=== PATIENT | male | born 1965 | race Caucasian/White ===

== ENCOUNTER 2022-08-22 00:27 | Day surgery (SDC) | payer BC, SELFPAY ==
[2022-08-12 09:47] VITALS: BMI 25.8
[2022-08-22 06:15] VITALS: BP 124/75; PULSE 74; RESP 18; TEMP 36.1; O2SAT 95
[2022-08-22] MEDS: LACTATED RINGERS 1,000 ML 150 ML IV CONT (06:28)
[2022-08-22 06:29] LABS: Glucose Point of Care 98 mg/dl (65-105)
--- NOTE | 2022-08-22 07:23 | WPDANESEPPF ---
Anes - Initial Pre Proc Eval Procedure: Operation Date: 08/22/22 07:30 Proposed Procedures p Screening Colonoscopy - Rony Khan MD Date/Time: 08/22/22 07:23 Surgeon: Rony Khan MD Pre Op Diagnosis: neoplasm screenin Patient Data Age: 57 Gender: M Height: 1.8 m Weight: 85.9 kg Last Vital Signs Temp 97 F L 08/22/22 06:15 Pulse 74 08/22/22 06:15 Resp 18 08/22/22 06:15 BP 124/75 08/22/22 06:15 Pulse Ox 95 08/22/22 06:15 O2 Del Method Room Air 08/22/22 06:15 Allergies Allergy/AdvReac Type Severity Reaction Status Date / Time No Known Allergies Allergy Verified 08/22/22 06:14 Home Medications Medication Instructions Recorded Confirmed Type glipizide 5 mg tablet 5 mg PO DAILY 09/05/21 08/12/22 History cetirizine 10 mg tablet (Zyrtec) 10 mg PO DAILY PRN Allergy Symptoms 12/11/21 08/12/22 History Jardiance 25 mg tablet See Rx Instructions .Route 03/31/22 08/12/22 Rx (empagliflozin) .COMPLEX #90 tabs Trulicity 3 mg/0.5 mL subcutaneous See Rx Instructions .Route 03/31/22 08/12/22 Rx pen injector (dulaglutide) .COMPLEX #6 mL simvastatin 40 mg tablet See Rx Instructions .Route 03/31/22 08/12/22 Rx .COMPLEX #90 tabs metformin 500 mg tablet 1,000 mg PO BID #360 tabs 04/22/22 08/12/22 Rx sodium,potassium,mag sulfates 17.5 See Rx Instructions PO .COMPLEX 06/30/22 08/12/22 Rx gram-3.13 gram-1.6 gram oral soln #354 mL (Suprep Bowel Prep Kit) Laboratory Tests 08/22/22 06:25 POC Capillary Glucose 98 mg/dl mg/dl (65-105) Patient hx anesthesia problems: none Family hx anesthesia problems: none Results Review: All pre-operative results and documents have been reviewed as part of the pre-operative evaluation. [facility] Past Medical History Medical History (Updated 06/20/22 @ 08:26 by Bailey Johnson NP) Diabetes type 2, controlled Elevated PSA Hyperlipidemia Surgical History Surgical History (Updated 06/20/22 @ 07:44 by Tiffani Gibson CMA) History of prostatectomy (~02/2022) Family History Family History Father Diabetes mellitus Heart disease Cerebrovascular accident Cancer colon, lung Mother Bladder cancer Social History Social History Social History: Caffeine-Soda daily Smoking status: Never smoker Alcohol intake: current Alcohol use details: occasionally Living arrangements: with family Deshaun Suarez Final PreProcedure Day of Procedure 08/22/22 07:23 Patient weight: normal Heart: regular rate and rhythm Lungs: clear to auscultation Airway: Mallampati scale class II Neurological: alert and oriented Last oral intake: >/= 8 hours ASA classification: III Emergent: no Anesthetic plan: proceed Anesthesia type and monitoring: general GIVS and standard monitoring Results Review: All pre-operative results and documents have been reviewed as part of the pre-operative evaluation. Informed Consent: The patient's anesthetic plan and its attendant risks and benefits were discussed with the patient/family/POA. Questions were solicited and answers provided to the satisfaction of the patient/family/POA.
--- NOTE | 2022-08-22 07:29 | PM.HPGS ---
History of Present Illness History of Present Illness Consent: Risks, benefits, and alternatives have been discussed and questions answered. Patient agrees to proceed with procedure. Chief complaint: neoplasm screenin Narrative: Donnie Mccall is a 57 year old male Presents for screening colonoscopy. Patient's current weight appetite and bowel movements are normal. Patient denies abdominal pain. He has had no bleeding. Patient reports 8 or 9 years ago was found to have a colon polyp. Most recent colonoscopy 5 years ago was unremarkable. These exams were performed elsewhere in results not immediately available for review. Patient does have a history of prostatectomy for prostate cancer. He denies any radiation therapy. Review of Systems Review of Systems: Review of systems noncontributory. [facility] Past Medical History Medical History (Updated 06/20/22 @ 08:26 by Bailey Johnson NP) Diabetes type 2, controlled Elevated PSA Hyperlipidemia Surgical History Surgical History (Updated 06/20/22 @ 07:44 by Tiffani Gibson CMA) History of prostatectomy (~02/2022) Family History Family History Father Diabetes mellitus Heart disease Cerebrovascular accident Cancer colon, lung Mother Bladder cancer Social History Social History Social History: Caffeine-Soda daily Smoking status: Never smoker Alcohol intake: current Alcohol use details: occasionally Living arrangements: with family Meds Home Medications and Allergies Home Medications Medication Instructions Recorded Confirmed Type glipizide 5 mg tablet 5 mg PO DAILY 09/05/21 08/12/22 History cetirizine 10 mg tablet (Zyrtec) 10 mg PO DAILY PRN Allergy Symptoms 12/11/21 08/12/22 History Jardiance 25 mg tablet See Rx Instructions .Route 03/31/22 08/12/22 Rx (empagliflozin) .COMPLEX #90 tabs Trulicity 3 mg/0.5 mL subcutaneous See Rx Instructions .Route 03/31/22 08/12/22 Rx pen injector (dulaglutide) .COMPLEX #6 mL simvastatin 40 mg tablet See Rx Instructions .Route 03/31/22 08/12/22 Rx .COMPLEX #90 tabs metformin 500 mg tablet 1,000 mg PO BID #360 tabs 04/22/22 08/12/22 Rx sodium,potassium,mag sulfates 17.5 See Rx Instructions PO .COMPLEX 06/30/22 08/12/22 Rx gram-3.13 gram-1.6 gram oral soln #354 mL (Suprep Bowel Prep Kit) Allergies Allergy/AdvReac Type Severity Reaction Status Date / Time No Known Allergies Allergy Verified 08/22/22 06:14 Vital Signs Vital Signs - 24 hr 08/22/22 06:15 Temperature 97 F L Pulse Rate 74 Respiratory Rate 18 Blood Pressure 124/75 Pulse Oximetry 95 Oxygen Delivery Room Air Exam Narrative: Physical exam reveals patient to be alert. Vital signs stable. HEENT exam is unremarkable. Patient is anicteric. Lungs are clear to auscultation and percussion. Heart is without murmur or extra sounds. Abdomen bowel sounds are present soft nontender with no hepatosplenomegaly. Digital external rectal exam is normal. Assessment and Plan Assessment and plan (1) Screening for colon cancer: Code(s): Z12.11 - Encounter for screening for malignant neoplasm of colon Status: Acute Assessment and Plan: Patient presents for screening for colon cancer. Patient has a prior history of colon polyps 8 or 9 years ago. Further recommendations may be given after endoscopy.
[2022-08-22 07:54] VITALS: BP 108/74; PULSE 78; RESP 14; O2SAT 96
[2022-08-22 08:04] VITALS: BP 106/71; PULSE 84; RESP 16; O2SAT 97
[2022-08-22 08:09] LABS: Glucose Point of Care 108 mg/dl (65-105)
[2022-08-22 08:14] VITALS: BP 114/77; PULSE 82; RESP 16; O2SAT 99
== END 2022-08-22 08:23 | disposition home or self-care (01) ==
PROVIDERS: PCP Internal Medicine; Visit Provider Internal Medicine Gastroenterology
PROC: 0DJD8ZZ Inspection of Lower Intestinal Tract, Via Natural or Artificial Opening Endoscopic (ICD-10-PCS; CPT 45378; principal; 2022-08-22 07:30)
DX: Z12.11 Encounter for screening for malignant neoplasm of colon (principal); D12.0 Benign neoplasm of cecum; K57.30 Diverticulosis of large intestine without perforation or abscess without bleeding; E11.9 Type 2 diabetes mellitus without complications; E78.5 Hyperlipidemia, unspecified; Z79.84 Long term (current) use of oral hypoglycemic drugs; Z79.899 Other long term (current) drug therapy
CPT/HCPCS: 45385; 82948; 88305; J2704; J7120

== ENCOUNTER 2023-08-29 09:28 | Emergency (ER) | payer BC, SELFPAY ==
[2023-08-29 09:37] VITALS: BP 120/90; PULSE 89; RESP 16; TEMP 36.1; O2SAT 94
--- NOTE | 2023-08-29 09:46 | ED.URI ---
HPI - URI/Sore Throat General Chief Complaint: Upper Respiratory Infection Stated Complaint: COLD SYMPTOMS/EYE REDNESS Time Seen by Provider: 08/29/23 09:38 Source: patient and RN notes reviewed Mode of arrival: ambulatory Limitations: no limitations History of Present Illness HPI Narrative: Patient presents today with a 2 week history of nasal congestion, rhinorrhea, cough, with left eye redness and drainage x2 days. Denies shortness of breath or fever. He has tried DayQuil, NyQuil, Mucinex, and Visine with mild relief. History of diabetes for which he takes metformin, glipizide, Jardiance, and Trulicity. Related Data Home Medications Medication Instructions Recorded Confirmed cetirizine 10 mg tablet (Zyrtec) 10 mg PO DAILY PRN Allergy Symptoms 12/11/21 06/05/23 Allergies Allergy/AdvReac Type Severity Reaction Status Date / Time No Known Allergies Allergy Verified 06/05/23 09:33 Review of Systems Review of Systems: CONSTITUTIONAL: Denies body aches, fever, chills, or sweats. EYES: Denies visual changes.+ left eye redness and drainage ENT: Denies sore throat, or otalgia.+ congestion, rhinorrhea CARDIOVASCULAR: Denies chest pain, palpitations, or edema. RESPIRATORY: Denies dyspnea.+ cough GASTROINTESTINAL: Denies abdominal pain, nausea, vomiting, or diarrhea. GENITOURINARY: Denies dysuria or hematuria. SKIN: Denies rash, itching, or wounds. MUSCULOSKELETAL: Denies back pain, joint pain, or myalgia. NEUROLOGIC: Denies headache, numbness, tingling, or weakness. PSYCH: Denies depression or anxiety. [facility] Past Medical History Medical History Diabetes type 2, controlled Elevated PSA Hyperlipidemia Surgical History Surgical History History of prostatectomy (~02/2022) Family History Family History Father Diabetes mellitus Heart disease Cerebrovascular accident Cancer colon, lung Mother Bladder cancer Social History Social History Social History: Caffeine-Soda daily Smoking status: Never smoker Alcohol intake: current Alcohol use details: occasionally Living arrangements: with family Comments At time of signature, I have reviewed and agree with nursing past medical, surgical, social and family history unless otherwise noted. Please see nursing chart for further information. There is no relevant family history pertinent to the presenting complaint Exam Narrative: GENERAL: Well-appearing, well-nourished, and in no acute distress. HEAD: Normocephalic, atraumatic. EYES: EOMI. PERRL. Right eye normal. Left eye with mildly injected conjunctiva with mild purulent discharge. ENT: Mucous membranes pink and moist. Nares are congested with rhinorrhea. TMs normal bilaterally. Throat normal. Uvula midline. NECK: Normal AROM. Supple. No lymphadenopathy. CHEST: No respiratory distress. Clear to auscultation. HEART: Regular rate and rhythm. No murmur appreciated. EXTREMITIES: Normal range of motion. No edema. SKIN: Warm, dry, no rash. Capillary refill normal. Normal skin turgor. NEURO: No focal deficits. Alert and oriented x3. Gait steady. PSYCH: Normal affect. No signs of depression or anxiety. Course Course Level of Care: Express Care Visit Vital Signs Vital signs: Vital Signs Temperature 96.9 F L 08/29/23 09:37 Pulse Rate 89 08/29/23 09:37 Respiratory Rate 16 08/29/23 09:37 Blood Pressure 120/90 08/29/23 09:37 Pulse Oximetry 94 08/29/23 09:37 Temperature 96.9 F L 08/29/23 09:37 Pulse Rate 89 08/29/23 09:37 Respiratory Rate 16 08/29/23 09:37 Blood Pressure 120/90 08/29/23 09:37 Pulse Oximetry 94 08/29/23 09:37 Reviewed MDM - URI/Sore Throat MDM Narrative Medical decision sheila
== END 2023-08-29 09:53 | disposition home or self-care (01) ==
PROVIDERS: Emergency Provider Nurse Practitioner; PCP Internal Medicine
DX: H10.32 Unspecified acute conjunctivitis, left eye (principal); J06.9 Acute upper respiratory infection, unspecified; E11.9 Type 2 diabetes mellitus without complications; Z79.84 Long term (current) use of oral hypoglycemic drugs; E78.5 Hyperlipidemia, unspecified; Z90.79 Acquired absence of other genital organ(s)
CPT/HCPCS: 99213; G0463